=== PATIENT | female | born 1995 | race African-American/Black ===

== ENCOUNTER 2019-02-03 18:25 | Emergency (ER) | payer OTHER ==
[~2019-02-03] VITALS: Ht 160 cm; Wt 57.1 kg
[2019-02-03] MEDS ORDERED: NOHOMEMEDICATIONS (18:40)
[2019-02-03] MEDS ORDERED: ZANAFLEX4 MG PO (19:10)
[2019-02-03] MEDS ORDERED: NAPROSYN500 MG PO (19:10)
[2019-02-03 20:09] VITALS: BP 118/73
== END 2019-02-03 20:10 | disposition home or self-care (01) ==
LOC: M.ERS 18:25
DX: S06.0X0A Concussion without loss of consciousness, initial encounter (principal); S16.1XXA Strain of muscle, fascia and tendon at neck level, initial encounter; R07.81 Pleurodynia; V89.2XXA Person injured in unspecified motor-vehicle accident, traffic, initial encounter; Y93.89 Activity, other specified; Y92.89 Other specified places as the place of occurrence of the external cause; Y99.8 Other external cause status